=== PATIENT | male | born 1950 | race Two or more races ===

== ENCOUNTER 2017-11-07 06:21 | Inpatient (IN) | payer MEDICARE ==
[~2017-11-07] VITALS: Ht 162.6 cm; Wt 83.0 kg
[2017-11-07 06:55] LABS: BASOPHILS 0.1 % (0-2); EOSINOPHILS 0.1 % (0-7); HEMATOCRIT 43.9 % (42.0-54.0); HEMOGLOBIN 14.2 g/dL (13.5-17.5); IMMATURE GRANULOCYTES 0.2 % (0-5); LYMPHOCYTES 5.9 % (15-50); MCH 24.8 pg (26.0-34.0); MCHC 32.3 g/dL (31.0-37.0); MCV 76.6 fL (80.0-100.0); MEAN PLATELET VOLUME 9.5 fL (7.4-10.4); MONOCYTES 3.7 % (2-11); PLATELET COUNT 261 10x3/uL (130-400); RBC 5.73 10x6/uL (4.20-6.10); RDW 14.7 % (11.5-14.5); WBC 14.2 10x3/uL (4.8-10.8)
[2017-11-07 07:12] LABS: ALKALINE PHOSPHATASE 68 U/L (46-116); ALT (SGPT) 24 U/L (10-68); AMYLASE - SERUM 51 U/L (25-115); CALC OSMOLALITY 278 mosm/kg (275-300); CALCIUM 9.9 mg/dL (8.5-10.1); CARBON DIOXIDE 26.9 mmol/L (21.0-32.0); CHLORIDE - SERUM 101 mmol/L (98-107); CREATININE - SERUM 0.9 mg/dL (0.6-1.3); GLUCOSE 163 mg/dL (74-106); LIPASE 140 U/L (73-393); POTASSIUM - SERUM 4.4 mmol/L (3.5-5.1); PROTEIN - SERUM 7.9 g/dL (6.4-8.2); SODIUM 138 mmol/L (136-145); UREA NITROGEN 10 mg/dL (7-18); eGFR NON AFRICAN AMERICAN 89 mL/min (90-120)
[2017-11-07 09:26] LABS: APPEARANCE HAZY (CLEAR); BILIRUBIN NEGATIVE (NEGATIVE); COLOR DK YELLOW (YELLOW); GLUCOSE NEGATIVE (NEGATIVE); KETONE MODERATE mg/dL (NEGATIVE); NITRITE NEGATIVE (NEGATIVE); PROTEIN NEGATIVE (NEGATIVE); UROBILINOGEN NORMAL (NORMAL)
[2017-11-07 21:36] VITALS: BP 117/63
[2017-11-08 02:57] VITALS: Ht 162.6 cm; Wt 83.0 kg
[2017-11-08] MEDS ORDERED: ASPIRIN325 MG PO (04:50)
[2017-11-08 04:54] VITALS: BP 103/60
[2017-11-08 06:07] LABS: BASOPHILS 0.6 % (0-2); EOSINOPHILS 2.4 % (0-7); HEMATOCRIT 36.9 % (42.0-54.0); HEMOGLOBIN 11.4 g/dL (13.5-17.5); IMMATURE GRANULOCYTES 0.2 % (0-5); LYMPHOCYTES 19.3 % (15-50); MCH 23.9 pg (26.0-34.0); MCHC 30.9 g/dL (31.0-37.0); MCV 77.4 fL (80.0-100.0); MEAN PLATELET VOLUME 9.6 fL (7.4-10.4); MONOCYTES 11.4 % (2-11); NEUTROPHILS 66.1 % (40-80); PLATELET COUNT 227 10x3/uL (130-400); RBC 4.77 10x6/uL (4.20-6.10); RDW 14.8 % (11.5-14.5)
[2017-11-08 06:19] LABS: WBC 6.3 10x3/uL (4.8-10.8)
[2017-11-08 06:49] LABS: CALC OSMOLALITY 280 mosm/kg (275-300); CALCIUM 8.1 mg/dL (8.5-10.1); CARBON DIOXIDE 26.1 mmol/L (21.0-32.0); CHLORIDE - SERUM 107 mmol/L (98-107); CREATININE - SERUM 0.9 mg/dL (0.6-1.3); GLUCOSE 95 mg/dL (74-106); POTASSIUM - SERUM 3.9 mmol/L (3.5-5.1); SODIUM 141 mmol/L (136-145); UREA NITROGEN 12 mg/dL (7-18); eGFR NON AFRICAN AMERICAN 89 mL/min (90-120)
[2017-11-08 08:14] VITALS: BP 101/56
[2017-11-08 12:39] VITALS: BP 106/66
[2017-11-08] MEDS ORDERED: MIRALAX17 GM PO (13:26)
== END 2017-11-08 14:37 | disposition home or self-care (01) | DRG 390 ==
LOC: D.ER 06:21 → D.MS 11:02 → D.EDHOLD 11:02 → D.MS 18:20
PROVIDERS: Family Medicine; Surgery
PROC: 0D9670Z Drainage of Stomach with Drainage Device, Via Natural or Artificial Opening (ICD-10-PCS; principal; 2017-11-07)
DX: K56.609 Unspecified intestinal obstruction, unspecified as to partial versus complete obstruction (principal)

== ENCOUNTER 2018-01-07 23:26 | Inpatient (IN) | payer MEDICARE ==
[~2018-01-07] VITALS: Ht 162.6 cm; Wt 83.6 kg
--- NOTE | ~2018-01-07 | OP ---
PATIENT NAME: BEBETO VALENTINE MEDICAL RECORD: [id number] :48 LOCATION:D.MS [address] ADMISSION DATE:01/08/18 SURGEON: RISA PADILLA MD DATE OF OPERATION: 01/11/2018 SURGEON: Risa Padilla MD (JJ) PREOPERATIVE DIAGNOSIS: Small bowel obstruction. POSTOPERATIVE DIAGNOSIS: Small bowel obstruction. PROCEDURES PERFORMED: 1. Diagnostic laparoscopy. 2. Laparoscopic lysis of adhesions. ANESTHESIA: General. COMPLICATIONS: None. SPECIMENS: None. Case was clean. ESTIMATED BLOOD LOSS: 30 cc. OPERATIVE COURSE: After consent was obtained, the patient was taken to the operating room and placed in the supine position on the operating table. Next, general anesthesia was given via endotracheal intubation after time-out was performed to confirm correct patient and procedure. The abdomen was prepped and draped in typical sterile fashion. Local anesthetic was injected in the left upper quadrant at Su's point. A stab incision was made with #11 blade scalpel. Using a 5-mm bladeless optical trocar, the abdomen was entered in direct laparoscopic vision. Adequate pneumoperitoneum was achieved. The abdominal cavity was inspected. No evidence of bowel injury. No evidence of bleeding. Two additional 5-mm trocars were placed under direct laparoscopic vision in left lower quadrant and left lateral quadrant. The cecum was identified. The terminal ileum was identified. The small bowel was run from the terminal ileum to the ligament of Treitz. There was a dense adhesion in the distal terminal ileum, creating a taut 90-degree fold in the bowel. Laparoscopic lysis of adhesion was performed with Metzenbaum scissors until the adhesion was completely excised and resolved. At that time, the small bowel again was run from the terminal ileum to the ligament of Treitz. There were no additional adhesions identified within either loops of small bowel. The abdominal cavity was copiously irrigated and suctioned. The abdominal cavity was inspected. There was no evidence of bowel injury and no evidence of bleeding. At this time, all remaining instruments were removed. The abdomen was desufflated. Trocars were removed. Skin was closed with 4-0 Monocryl, Mastisol, and Steri-Strips. At the end of the case, all needle and instrument counts were correct. No complications occurred. The patient was extubated and transferred to PACU in stable condition. TRANSINT:[id number] Voice Confirmation ID: [id number] DOCUMENT ID: [id number] OPERATIVE REPORT [id number] BEBETO VALENTINE JAMES J MD at 1943 CC: [id number] DICTATION DATE: 01/11/18 1800 MOLECULAR PATHOLOGIST: 01/11/18 1822 ADM IN [facility] [address] [place] [address]
[~2018-01-07 23:26] MED LIST: ASPIRIN325 MG PO; MIRALAX17 GM PO
[2018-01-07] MEDS ORDERED: CRESTOR5 MG PO (23:31)
[2018-01-08] VITALS (9 sets, daily range): BP systolic 103–140; BP diastolic 56–83; BMI 31.8
[2018-01-08 00:39] LABS: HEMATOCRIT 44.8 % (42.0-54.0); HEMOGLOBIN 14.3 g/dL (13.5-17.5); LYMPHOCYTES 9.9 % (15-50); MCH 24.4 pg (26.0-34.0); MCHC 31.9 g/dL (31.0-37.0); MCV 76.6 fL (80.0-100.0); MEAN PLATELET VOLUME 9.4 fL (7.4-10.4); NEUTROPHILS 85.3 % (40-80); PLATELET COUNT 228 10x3/uL (130-400); RBC 5.85 10x6/uL (4.20-6.10); RDW 15.8 % (11.5-14.5); WBC 9.2 10x3/uL (4.8-10.8)
[2018-01-08 00:54] LABS: ALBUMIN 3.4 g/dL (3.4-5.0); ALKALINE PHOSPHATASE 57 U/L (46-116); ALT (SGPT) 17 U/L (10-68); BILIRUBIN - TOTAL 1.11 mg/dL (0.2-1.3); CALC OSMOLALITY 282 mosm/kg (275-300); CARBON DIOXIDE 27.6 mmol/L (21.0-32.0); CHLORIDE - SERUM 106 mmol/L (98-107); CREATININE - SERUM 0.8 mg/dL (0.6-1.3); LIPASE 151 U/L (73-393); PROTEIN - SERUM 6.9 g/dL (6.4-8.2); SODIUM 141 mmol/L (136-145); UREA NITROGEN 11 mg/dL (7-18); eGFR NON AFRICAN AMERICAN > 90 mL/min (90-120)
[2018-01-08 00:55] LABS: GLUCOSE 153 mg/dL (74-106)
[2018-01-08 14:12] LABS: APPEARANCE CLEAR (CLEAR); BILIRUBIN NEGATIVE (NEGATIVE); COLOR YELLOW (YELLOW); GLUCOSE NEGATIVE (NEGATIVE); KETONE NEGATIVE (NEGATIVE); NITRITE NEGATIVE (NEGATIVE); PROTEIN NEGATIVE (NEGATIVE); UROBILINOGEN NORMAL (NORMAL)
[2018-01-09 00:56] VITALS: BP 129/78
[2018-01-09 04:38] LABS: BASOPHILS 0.3 % (0-2); HEMATOCRIT 39.8 % (42.0-54.0); HEMOGLOBIN 12.5 g/dL (13.5-17.5); IMMATURE GRANULOCYTES 0.3 % (0-5); LYMPHOCYTES 18.9 % (15-50); MCH 24.6 pg (26.0-34.0); MCHC 31.4 g/dL (31.0-37.0); MCV 78.2 fL (80.0-100.0); MEAN PLATELET VOLUME 9.7 fL (7.4-10.4); MONOCYTES 11.2 % (2-11); NEUTROPHILS 66.3 % (40-80); PLATELET COUNT 190 10x3/uL (130-400); RBC 5.09 10x6/uL (4.20-6.10); RDW 15.9 % (11.5-14.5)
[2018-01-09 04:40] LABS: WBC 6.1 10x3/uL (4.8-10.8)
[2018-01-09 04:45] LABS: CALC OSMOLALITY 286 mosm/kg (275-300); CALCIUM 7.5 mg/dL (8.5-10.1); CARBON DIOXIDE 30.4 mmol/L (21.0-32.0); CHLORIDE - SERUM 108 mmol/L (98-107); GLUCOSE 109 mg/dL (74-106); POTASSIUM - SERUM 3.6 mmol/L (3.5-5.1); SODIUM 144 mmol/L (136-145); UREA NITROGEN 11 mg/dL (7-18); eGFR NON AFRICAN AMERICAN 79 mL/min (90-120)
[2018-01-09 04:48] VITALS: BP 131/73
[2018-01-09 08:57] VITALS: BP 128/73
[2018-01-09 10:06] VITALS: Ht 162.6 cm; Wt 83.6 kg
[2018-01-09 12:49] VITALS: BP 139/76
[2018-01-09 16:52] VITALS: BP 139/80
[2018-01-09 20:00] VITALS: BP 130/77
[2018-01-10] VITALS (7 sets, daily range): BP systolic 128–145; BP diastolic 68–85
[2018-01-10 05:19] LABS: BASOPHILS 0.5 % (0-2); EOSINOPHILS 4.7 % (0-7); HEMATOCRIT 40.8 % (42.0-54.0); HEMOGLOBIN 13.2 g/dL (13.5-17.5); IMMATURE GRANULOCYTES 0.2 % (0-5); LYMPHOCYTES 15.7 % (15-50); MCH 25.1 pg (26.0-34.0); MCHC 32.4 g/dL (31.0-37.0); MCV 77.6 fL (80.0-100.0); MEAN PLATELET VOLUME 10.1 fL (7.4-10.4); MONOCYTES 11.5 % (2-11); NEUTROPHILS 67.4 % (40-80); PLATELET COUNT 192 10x3/uL (130-400); RBC 5.26 10x6/uL (4.20-6.10); RDW 15.4 % (11.5-14.5); WBC 6.4 10x3/uL (4.8-10.8)
[2018-01-10 05:28] LABS: ALKALINE PHOSPHATASE 52 U/L (46-116); ALT (SGPT) 19 U/L (10-68); BILIRUBIN - TOTAL 2.01 mg/dL (0.2-1.3); CALC OSMOLALITY 278 mosm/kg (275-300); CALCIUM 8.4 mg/dL (8.5-10.1); CARBON DIOXIDE 28.6 mmol/L (21.0-32.0); CHLORIDE - SERUM 106 mmol/L (98-107); CREATININE - SERUM 0.8 mg/dL (0.6-1.3); GLUCOSE 99 mg/dL (74-106); POTASSIUM - SERUM 3.4 mmol/L (3.5-5.1); SODIUM 141 mmol/L (136-145); eGFR NON AFRICAN AMERICAN > 90 mL/min (90-120)
[2018-01-10 05:33] LABS: UREA NITROGEN 6 mg/dL (7-18)
[2018-01-11 04:05] VITALS: BP 114/63
[2018-01-11 06:08] LABS: BASOPHILS 0.5 % (0-2); EOSINOPHILS 4.1 % (0-7); HEMATOCRIT 42.6 % (42.0-54.0); HEMOGLOBIN 13.9 g/dL (13.5-17.5); MCH 24.9 pg (26.0-34.0); MCHC 32.6 g/dL (31.0-37.0); MCV 76.3 fL (80.0-100.0); MEAN PLATELET VOLUME 10.2 fL (7.4-10.4); MONOCYTES 9.1 % (2-11); NEUTROPHILS 74.3 % (40-80); PLATELET COUNT 210 10x3/uL (130-400); RBC 5.58 10x6/uL (4.20-6.10); RDW 15.2 % (11.5-14.5); WBC 6.4 10x3/uL (4.8-10.8)
[2018-01-11 06:28] LABS: ALBUMIN 3.1 g/dL (3.4-5.0); ALKALINE PHOSPHATASE 56 U/L (46-116); ALT (SGPT) 21 U/L (10-68); BILIRUBIN - TOTAL 1.93 mg/dL (0.2-1.3); CALC OSMOLALITY 276 mosm/kg (275-300); CALCIUM 8.5 mg/dL (8.5-10.1); CARBON DIOXIDE 25.4 mmol/L (21.0-32.0); CHLORIDE - SERUM 105 mmol/L (98-107); CREATININE - SERUM 0.9 mg/dL (0.6-1.3); GLUCOSE 89 mg/dL (74-106); PROTEIN - SERUM 6.6 g/dL (6.4-8.2); SODIUM 141 mmol/L (136-145); UREA NITROGEN 5 mg/dL (7-18); eGFR NON AFRICAN AMERICAN 89 mL/min (90-120)
[2018-01-11 06:29] LABS: POTASSIUM - SERUM 3.1 mmol/L (3.5-5.1)
[2018-01-11 08:42] VITALS: BP 126/84
[2018-01-11 13:00] VITALS: BP 145/79
[2018-01-11 19:07] VITALS: BP 131/80
[2018-01-11 20:51] VITALS: BP 131/80
[2018-01-12 04:26] VITALS: BP 98/49
[2018-01-12 05:05] LABS: BASOPHILS 0.5 % (0-2); EOSINOPHILS 5.4 % (0-7); HEMATOCRIT 38.6 % (42.0-54.0); HEMOGLOBIN 12.5 g/dL (13.5-17.5); IMMATURE GRANULOCYTES 0.2 % (0-5); LYMPHOCYTES 14.5 % (15-50); MCHC 32.4 g/dL (31.0-37.0); MEAN PLATELET VOLUME 9.6 fL (7.4-10.4); MONOCYTES 9.1 % (2-11); NEUTROPHILS 70.3 % (40-80); PLATELET COUNT 203 10x3/uL (130-400); RBC 5.01 10x6/uL (4.20-6.10); RDW 15.3 % (11.5-14.5); WBC 6.3 10x3/uL (4.8-10.8)
[2018-01-12 05:28] LABS: ALBUMIN 2.5 g/dL (3.4-5.0); ALKALINE PHOSPHATASE 51 U/L (46-116); ALT (SGPT) 19 U/L (10-68); BILIRUBIN - TOTAL 1.32 mg/dL (0.2-1.3); CALC OSMOLALITY 279 mosm/kg (275-300); CALCIUM 7.6 mg/dL (8.5-10.1); CARBON DIOXIDE 29.7 mmol/L (21.0-32.0); CHLORIDE - SERUM 107 mmol/L (98-107); CREATININE - SERUM 0.9 mg/dL (0.6-1.3); GLUCOSE 110 mg/dL (74-106); POTASSIUM - SERUM 3.4 mmol/L (3.5-5.1); PROTEIN - SERUM 5.5 g/dL (6.4-8.2); SODIUM 141 mmol/L (136-145); UREA NITROGEN 6 mg/dL (7-18); eGFR NON AFRICAN AMERICAN 89 mL/min (90-120)
[2018-01-12] MEDS ORDERED: HYDROCODON-ACE1 EAC7 PO (08:26)
[2018-01-12 08:39] VITALS: BP 116/76
== END 2018-01-12 13:15 | disposition home or self-care (01) | DRG 337 ==
LOC: D.ER 23:26 → D.MS 01-08 03:48 → D.EDHOLD 01-08 03:48 → D.MS 01-08 05:29
PROVIDERS: Family Medicine; Surgery
PROC: 0D9670Z Drainage of Stomach with Drainage Device, Via Natural or Artificial Opening (ICD-10-PCS; 2018-01-08)
PROC: 0DNB4ZZ Release Ileum, Percutaneous Endoscopic Approach (ICD-10-PCS; principal; 2018-01-11 11:15)
DX: K56.50 Intestinal adhesions [bands], unspecified as to partial versus complete obstruction (principal); E78.5 Hyperlipidemia, unspecified; I73.9 Peripheral vascular disease, unspecified; Z95.820 Peripheral vascular angioplasty status with implants and grafts; K21.9 Gastro-esophageal reflux disease without esophagitis; E87.6 Hypokalemia; N20.0 Calculus of kidney

== ENCOUNTER → 2019-01-09 09:05 | Outpatient (CLI) | payer MEDICARE ==
[2018-01-09 10:06] VITALS: BMI 31.7
[~2019-01-09 09:05] MED LIST changes: +CRESTOR5 MG PO; +HYDROCODON-ACE1 EAC7 PO
== END | disposition home or self-care (01) ==
LOC: D.RAD 09:05
PROVIDERS: ATTEND Internal Medicine Gastroenterology
DX: R10.9 Unspecified abdominal pain (principal); R93.3 Abnormal findings on diagnostic imaging of other parts of digestive tract

== ENCOUNTER 2019-09-17 07:11 | Inpatient (IN) | payer MEDICARE ==
[~2019-09-17] VITALS: Ht 162.6 cm; Wt 88.5 kg
[2019-09-17 07:52] VITALS: BP 133/77
[2019-09-17 08:11] LABS: CALC OSMOLALITY 275 mosm/kg (275-300); CALCIUM 8.7 mg/dL (8.5-10.1); CARBON DIOXIDE 28.4 mmol/L (21.0-32.0); CHLORIDE - SERUM 103 mmol/L (98-107); CREATININE - SERUM 0.9 mg/dL (0.6-1.3); GLUCOSE 155 mg/dL (74-106); POTASSIUM - SERUM 4.4 mmol/L (3.5-5.1); SODIUM 137 mmol/L (136-145); UREA NITROGEN 11 mg/dL (7-18); eGFR NON AFRICAN AMERICAN 89 mL/min (90-120)
[2019-09-17 08:19] LABS: ALBUMIN 3.4 g/dL (3.4-5.0); ALKALINE PHOSPHATASE 43 U/L (30-120); ALT (SGPT) 23 U/L (10-68); AMYLASE - SERUM 46 U/L (25-115); BILIRUBIN - TOTAL 1.69 mg/dL (0.2-1.3); LIPASE 109 U/L (73-393); PROTEIN - SERUM 6.5 g/dL (6.4-8.2)
[2019-09-17 08:20] LABS: BASOPHILS 0.2 % (0-2); EOSINOPHILS 0.1 % (0-7); HEMATOCRIT 40.3 % (42.0-54.0); IMMATURE GRANULOCYTES 0.2 % (0-5); LYMPHOCYTES 7.3 % (15-50); MCH 26.1 pg (26.0-34.0); MCHC 32.3 g/dL (31.0-37.0); MCV 80.8 fL (80.0-100.0); MEAN PLATELET VOLUME 9.5 fL (7.4-10.4); MONOCYTES 4.5 % (2-11); NEUTROPHILS 87.7 % (40-80); PLATELET COUNT 222 10x3/uL (130-400); RBC 4.99 10x6/uL (4.20-6.10); RDW 14.1 % (11.5-14.5); TROPONIN-I < 0.017 ng/mL (0.000-0.060); WBC 9.6 10x3/uL (4.8-10.8)
[2019-09-17 08:52] VITALS: BP 147/76
[2019-09-17 09:20] LABS: BILIRUBIN NEGATIVE (NEGATIVE); GLUCOSE NEGATIVE (NEGATIVE); KETONE SMALL mg/dL (NEGATIVE); NITRITE NEGATIVE (NEGATIVE); SPECIFIC GRAVITY 1.005 (1.005-1.020); UROBILINOGEN NORMAL (NORMAL)
--- NOTE | 2019-09-17 10:07 | NUR ---
REPORTTO DOMENIC SANTA
--- NOTE | 2019-09-17 10:29 | NUR ---
RECEIVED PATIENT FROM ER VIA STRETCHER. ALERT AND ORIENTED. NO C/O PAIN. NO S/S OF ACUTE DISTRESS NOTED. NG TUBE TO RIGHT NARE, L/I/S. IV TO RIGHT HAND, NS INFUSING @ 125ML/HR. SITE PATENT WITHOUT REDNESS OR SWELLING. VITALS STABLE. DENIES ANY NEEDS AT THIS TIME. CALL LIGHT IN REACH. WILL CONTINUE TO MONITOR.
[2019-09-17 11:27] VITALS: BP 146/74; BMI 33.5
[2019-09-17 16:39] VITALS: BP 128/74
--- NOTE | 2019-09-17 18:17 | NUR ---
ALERT AND ORIENTED. NO C/O PAIN. NO S/S OF ACUTE DISTRESS NOTED. DENIES ANY NEEDS AT THIS TIME. CALL LIGHT IN REACH. WILL CONTINUE TO MONITOR.
[2019-09-17 20:00] VITALS: BP 145/70
[2019-09-18] VITALS: BP 118/68
[2019-09-18 04:00] VITALS: BP 133/73
[2019-09-18 06:04] LABS: BASOPHILS 0.2 % (0-2); EOSINOPHILS 2.2 % (0-7); HEMATOCRIT 38.1 % (42.0-54.0); HEMOGLOBIN 11.8 g/dL (13.5-17.5); IMMATURE GRANULOCYTES 0.2 % (0-5); LYMPHOCYTES 9.1 % (15-50); MCH 25.8 pg (26.0-34.0); MEAN PLATELET VOLUME 9.6 fL (7.4-10.4); MONOCYTES 12.7 % (2-11); NEUTROPHILS 75.6 % (40-80); PLATELET COUNT 210 10x3/uL (130-400); RBC 4.58 10x6/uL (4.20-6.10); RDW 14.1 % (11.5-14.5)
[2019-09-18 06:14] LABS: MCV 83.2 fL (80.0-100.0); WBC 6.2 10x3/uL (4.8-10.8)
[2019-09-18 06:38] LABS: ALBUMIN 2.7 g/dL (3.4-5.0); ALKALINE PHOSPHATASE 42 U/L (30-120); ALT (SGPT) 21 U/L (10-68); BILIRUBIN - TOTAL 2.34 mg/dL (0.2-1.3); CALCIUM 7.4 mg/dL (8.5-10.1); CARBON DIOXIDE 26.4 mmol/L (21.0-32.0); CHLORIDE - SERUM 107 mmol/L (98-107); CREATININE - SERUM 0.9 mg/dL (0.6-1.3); POTASSIUM - SERUM 3.9 mmol/L (3.5-5.1); PROTEIN - SERUM 5.2 g/dL (6.4-8.2); SODIUM 140 mmol/L (136-145); eGFR NON AFRICAN AMERICAN 89 mL/min (90-120)
[2019-09-18 06:52] LABS: CALC OSMOLALITY 279 mosm/kg (275-300); GLUCOSE 98 mg/dL (74-106); UREA NITROGEN 15 mg/dL (7-18)
[2019-09-18 08:10] VITALS: BP 110/65
--- NOTE | 2019-09-18 08:18 | NUR ---
PT RESTING IN BED. RESP EVEN AND UNLABORED. NG TUBE TO RIGHT NARE WITH BROWNISH COLORED DRAINAGE NOTED. PT REPORTS PAIN 9/10 AT THIS TIME. STAFF TO ADDRESS PAIN MEDICATION ORDERS WITH . IV TO RIGHT HAND WITH NS @ 125ML/HR INFUSING VIA PUMP. SITE WITHOUT REDNESS OR EDEMA. DENIES FURTHER NEEDS AT THIS TIME. CL WITHIN REACH. ENCOURAGED TO CALL WITH NEEDS. CONTINUE POC
[2019-09-18 12:24] VITALS: BP 147/80
[2019-09-18 13:59] VITALS: Ht 162.6 cm; Wt 88.5 kg
[2019-09-18 15:51] VITALS: BP 149/78
[2019-09-18 20:00] VITALS: BP 145/79
[2019-09-19] VITALS: BP 127/67
[2019-09-19 04:00] VITALS: BP 141/76
[2019-09-19 05:19] LABS: BASOPHILS 0.3 % (0-2); EOSINOPHILS 2.3 % (0-7); HEMATOCRIT 36.4 % (42.0-54.0); HEMOGLOBIN 11.4 g/dL (13.5-17.5); IMMATURE GRANULOCYTES 0.2 % (0-5); LYMPHOCYTES 15.3 % (15-50); MCH 25.9 pg (26.0-34.0); MCHC 31.3 g/dL (31.0-37.0); MCV 82.5 fL (80.0-100.0); MEAN PLATELET VOLUME 9.2 fL (7.4-10.4); MONOCYTES 12.5 % (2-11); NEUTROPHILS 69.4 % (40-80); PLATELET COUNT 192 10x3/uL (130-400); RBC 4.41 10x6/uL (4.20-6.10); WBC 5.7 10x3/uL (4.8-10.8)
[2019-09-19 05:37] LABS: ALBUMIN 2.6 g/dL (3.4-5.0); ALKALINE PHOSPHATASE 37 U/L (30-120); ALT (SGPT) 25 U/L (10-68); BILIRUBIN - TOTAL 1.81 mg/dL (0.2-1.3); CALC OSMOLALITY 280 mosm/kg (275-300); CALCIUM 7.6 mg/dL (8.5-10.1); CARBON DIOXIDE 25.3 mmol/L (21.0-32.0); CHLORIDE - SERUM 108 mmol/L (98-107); CREATININE - SERUM 0.9 mg/dL (0.6-1.3); GLUCOSE 81 mg/dL (74-106); POTASSIUM - SERUM 3.6 mmol/L (3.5-5.1); PROTEIN - SERUM 5.5 g/dL (6.4-8.2); SODIUM 141 mmol/L (136-145); UREA NITROGEN 15 mg/dL (7-18); eGFR NON AFRICAN AMERICAN 89 mL/min (90-120)
--- NOTE | 2019-09-19 06:23 | NUR ---
PATIENT UP TO BATROOM NG TUB CAME OUT. CALL TO DENTAL PATIENT COORDINATOR AWATTING CALL BACK.
--- NOTE | 2019-09-19 06:50 | NUR ---
ANDERSON RETRUNED CALL INFORMED TO PAGE DR PADILLA. DR PADILLA PAGED AWATTING CALL BACK
--- NOTE | 2019-09-19 07:23 | NUR ---
PT IS RESTING IN BED WITH EYES OPEN. RESPIRATIONS ARE EVEN AND UNLABORED. PT IS AAO X 4. NO NG TUBE NOTED. BS HYPOACTIVE X 4. ABDOMEN IS DISTENDED AND FIRM. PT REPORTS ABDOMINAL PAIN. FLAVOR TANK TENDER MORPHINE AVAILABLE NEEDED. PT DENIES NEEDS. PT DENIES PRESENCE OF N/V/ AT THIS TIME. PT STATES THAT HE HAS PASSED GAS BUT HAS NOT HAD BM OF YET. BED IS IN THE LOWEST POSITION. CALL LIGHT AND BEDSIDE TABLE ARE WITHIN REACH. SIDE RAILS X 2. PT DENIES FURTHER NEEDS. WILL CONT TO MONITOR.
--- NOTE | 2019-09-19 08:45 | NUR ---
PT AMBULATING HALLWAY WITHOUT DIFFICULTY. PT REPORTS ABDOMINAL PAIN DESCRIBED SHARP AND CRAMPING. SEED TESTER MORPHINE AVAILABLE. PT DENIES NEEDS. PT DENIES BM THUS FAR REPORTS THAT HE HAS PASSED GAS.
[2019-09-19 08:54] VITALS: BP 149/79
--- NOTE | 2019-09-19 09:46 | NUR ---
ATTEMPT MADE TO PLACE NG TUBE. PT NOT TOLERATING ATTEMPTS. BLOOD NOTED TO NG TUBE UPON REMOVAL FROM PT NOSTRIL. PT STANDING AT SINK VOMITING SCANT AMOUNTS OF YELLOW/GREEN FLUID.
[2019-09-19 12:32] VITALS: BP 134/64
--- NOTE | 2019-09-19 15:50 | NUR ---
PT WITH SMALL FORMED BM THAT IS DARK BROWN IN COLORS.
[2019-09-19 16:44] VITALS: BP 142/81
[2019-09-19 20:43] VITALS: BP 148/79
[2019-09-20 00:20] VITALS: BP 137/76
[2019-09-20 05:50] LABS: BASOPHILS 0.3 % (0-2); EOSINOPHILS 3.8 % (0-7); HEMATOCRIT 35.7 % (42.0-54.0); HEMOGLOBIN 11.3 g/dL (13.5-17.5); IMMATURE GRANULOCYTES 0.2 % (0-5); MCH 25.9 pg (26.0-34.0); MCHC 31.7 g/dL (31.0-37.0); MCV 81.9 fL (80.0-100.0); MEAN PLATELET VOLUME 9.4 fL (7.4-10.4); MONOCYTES 14.1 % (2-11); NEUTROPHILS 69.6 % (40-80); PLATELET COUNT 187 10x3/uL (130-400); RBC 4.36 10x6/uL (4.20-6.10); WBC 5.7 10x3/uL (4.8-10.8)
[2019-09-20 06:17] VITALS: BP 132/69
[2019-09-20 06:27] LABS: ALBUMIN 2.6 g/dL (3.4-5.0); ALKALINE PHOSPHATASE 40 U/L (30-120); ALT (SGPT) 29 U/L (10-68); BILIRUBIN - TOTAL 1.68 mg/dL (0.2-1.3); CALC OSMOLALITY 280 mosm/kg (275-300); CALCIUM 7.6 mg/dL (8.5-10.1); CARBON DIOXIDE 23.8 mmol/L (21.0-32.0); CHLORIDE - SERUM 107 mmol/L (98-107); CREATININE - SERUM 0.8 mg/dL (0.6-1.3); POTASSIUM - SERUM 3.4 mmol/L (3.5-5.1); PROTEIN - SERUM 5.1 g/dL (6.4-8.2); SODIUM 142 mmol/L (136-145); UREA NITROGEN 13 mg/dL (7-18); eGFR NON AFRICAN AMERICAN > 90 mL/min (90-120)
[2019-09-20 06:29] LABS: GLUCOSE 64 mg/dL (74-106)
[2019-09-20 08:58] VITALS: BP 135/70
--- NOTE | 2019-09-20 09:44 | NUR ---
IV UNHOOKED TO GO FOR AN X RAY.
--- NOTE | 2019-09-20 10:10 | NUR ---
NEW IV STARTED 22 G LEFT WRIST.
--- NOTE | 2019-09-20 11:25 | NUR ---
Nutrition follow-up: NPO 2/2 bowel obstruction Small bowel follow through today +BM, small NGT; unable to replace 2/2 pt unable to tolerate Wt: 194# Recommend starting ProcalAmine PPN @ 75 ml/hr RDN following.
[2019-09-20 12:26] VITALS: BP 149/60
[2019-09-20 17:15] VITALS: BP 146/68
--- NOTE | 2019-09-20 18:38 | NUR ---
NG REMOVED, NO RESIDUAL AFTER 4 HOURS. HAD A CLEAR LIQUID DIET, TOLERATED IT. HE REFUSED THE 4 TH POTASSIUM RIDER. HAD A TOTAL OF 30 MEQ TODAY. HE HAS WALKED THE HALLS.
[2019-09-20 20:00] VITALS: BP 144/72
[2019-09-21] VITALS: BP 140/65
[2019-09-21 04:00] VITALS: BP 137/71
[2019-09-21 06:37] LABS: ALBUMIN 3.1 g/dL (3.4-5.0); ALKALINE PHOSPHATASE 51 U/L (30-120); ALT (SGPT) 27 U/L (10-68); BILIRUBIN - TOTAL 2.06 mg/dL (0.2-1.3); CALC OSMOLALITY 276 mosm/kg (275-300); CALCIUM 8.1 mg/dL (8.5-10.1); CARBON DIOXIDE 24.7 mmol/L (21.0-32.0); CHLORIDE - SERUM 104 mmol/L (98-107); CREATININE - SERUM 0.9 mg/dL (0.6-1.3); GLUCOSE 89 mg/dL (74-106); POTASSIUM - SERUM 3.2 mmol/L (3.5-5.1); SODIUM 140 mmol/L (136-145); UREA NITROGEN 10 mg/dL (7-18); eGFR NON AFRICAN AMERICAN 89 mL/min (90-120)
[2019-09-21 06:41] LABS: PROTEIN - SERUM 6.5 g/dL (6.4-8.2)
[2019-09-21 07:03] LABS: BASOPHILS 0.5 % (0-2); EOSINOPHILS 4.6 % (0-7); HEMATOCRIT 33.4 % (42.0-54.0); HEMOGLOBIN 10.9 g/dL (13.5-17.5); IMMATURE GRANULOCYTES 0.2 % (0-5); LYMPHOCYTES 14.5 % (15-50); MCH 26.1 pg (26.0-34.0); MCHC 32.6 g/dL (31.0-37.0); MEAN PLATELET VOLUME 9.3 fL (7.4-10.4); MONOCYTES 12.2 % (2-11); PLATELET COUNT 202 10x3/uL (130-400); RBC 4.18 10x6/uL (4.20-6.10); RDW 14.1 % (11.5-14.5); WBC 4.3 10x3/uL (4.8-10.8)
[2019-09-21 07:16] LABS: MCV 79.9 fL (80.0-100.0)
--- NOTE | 2019-09-21 07:33 | NUR ---
ALERT AND ORIENTED. LUNGS CLEAR BILATERALLY. HEART SOUNDS S1 AND S2 HEARD IN ALL FORD. BOWEL SOUNDS ACTIVE X 4. SKIN INTACT WITHOUT REDNESS. IV TO LEFT WRIST PATENT WITHOUT REDNESS. DENIES NEEDS. BED LOW. SITTER OUTSIDE ROOM. WILL CONTINUE TO MONITOR.
--- NOTE | 2019-09-21 07:34 | NUR ---
ALERT AND ORIENTED. LUNGS CLEAR BILATERALLY. HEART SOUNDS S1 AND S2 HEARD IN ALL FORD. BOWEL SOUNDS ACTIVE X 4. SKIN INTACT WITHOUT REDNESS. DENIES PAIN. DENIES NEEDS. BED LOW. CALL BLANCHARD AND PERSONAL ITEMS IN REACH. WILL CONTINUE TO MONITOR.
[2019-09-21 09:39] VITALS: BP 139/67
[2019-09-21 09:52] LABS: BILIRUBIN - DIRECT 0.3 mg/dL (0.00-0.30); MAGNESIUM - SERUM 1.8 mg/dL (1.8-2.4)
--- NOTE | 2019-09-21 12:09 | NUR ---
SPOKE WITH ANDERSON ANGUIANO WHO STATES OK WITH HER TO DC LONG OK WITH RANDY. STATES WILL MAKE NOTE.
[2019-09-21] MEDS ORDERED: MILK OF MAGNESI30 ML PO (12:10)
[2019-09-21 12:17] VITALS: BP 126/64
--- NOTE | 2019-09-21 13:05 | NUR ---
IV REMOVED FROM LEFT WRIST FOR DC. WAITING DC PAPERWORK.
--- NOTE | 2019-09-21 13:45 | NUR ---
DISCHARGE EDUCATION PROVIDED BOTH WRITTEN AND VERBAL. VERBALIZED UNDERSTANDING. DENIES FURTHER QUESTIONS. REQUESTS TO WALK DOWN. PATIENT DC HOME WITH ALL BELONGINGS.
--- NOTE | 2019-09-22 13:14 | MORECARE ---
CASE MANAGEMENT DISCHARGE SUMMARY PATIENT: BEBETO VALENTINE UNIT: [id number] ADM DATE: 09/17/19 AGE: 69 : 48 SEX: M ROOM/BED: D.2207 AUTHOR: CARINADOC PHYSICIAN: REFERRING PHYSICIAN: LEONA KENNY MD DATE OF SERVICE: 09/22/19 Discharge Plan Patient Name: BEBETO VALENTINE Facility: [facility]:[place] : 1950 Planned Disposition: Home Anticipated Discharge Date: Discharge Date: 09/21/2019 Expected LOS: Initial Reviewer: [email or web address] Initial Review Date: 09/21/2019 Generated: 09/22/19 2:13 pm Comments DCP- Discharge Planning Updated by [email or web address]: Zoey Urena on 09/21/19 1:[address] DC PLAN: RETURN HOME WITH FAMILY INDEPENENTLY. ANTICIPATED DC NEEDS: DENIED DC NEEDS. CM met with patient to complete initial dc planning assessment. CM educated patient on the CM role and verbal consent given by patient to complete assessment. CM verified patient's address, phone number, and emergency contact phone numbers. Patient lives at home with his son and dtr in law. At discharge patient plans to return home and feels this is a safe discharge. CM discussed availability of home health, rehab services, and medical equipment. Patient denied known discharge needs at this time. Transportation provider at discharge will be his dtr in law. CM will continue to follow and will assist as needed with dc plans/needs. Zoey Urena RN, [facility] DCPIA - Discharge Planning Initial Assessment Updated by [email or web address]: Zoey Urena on 09/21/19 2:10 pm * Is the patient Alert and Oriented? Yes * How many steps to enter\exit or inside your home? NONE * PCP DR. CASILLAS * Pharmacy [facility] [address] * Preadmission Environment Home with Family * ADLs Independent * Equipment None * List name and contact numbers for known caregivers / representatives who currently or will assist patient after discharge: LINDSAY VALENTINE - SON - [phone] * Verbal permission to speak to the caregivers and representatives has been obtained from the patient. Yes * Community resources currently utilized None * Additional services required to return to the preadmission environment? No * Can the patient safely return to the preadmission environment? Yes * Has this patient been hospitalized within the prior 30 days at any hospital? No Coverage Notice Reviewer: [email or web address] Lesley Urena Notice Issued Date-Time: 09/21/2019 13:13 Notice Type: IM Discharge Notice Notice Delivered To: Patient Relationship to Patient: [employer] Name: Delivery Method: - Bre[place] Days: Prior Verbal Notification: Recipient Understood Notice: Yes Recipient Signature: Yes Med Rec Note Co-signed by Attending: Coverage Notice Comment: imm signed Patient Name: BEBETO VALENTINE Page [phone] at 1314 All edits/amendments must be made on the electronic document DICTATION DATE: 09/22/19 131 SHAKER WASHER: CELE 09/22/19 1313 RPT#: [id number] DC DATE:09/21/19 STATUS: DIS IN [facility] [address] [place] [address] END OF REPORT
== END 2019-09-21 13:46 | disposition home or self-care (01) | DRG 390 ==
LOC: D.ER 07:11 → D.MS 09:17
PROVIDERS: Family Medicine; Surgery; ADMIT Family Medicine; ATTEND Family Medicine
DX: K56.609 Unspecified intestinal obstruction, unspecified as to partial versus complete obstruction (principal); E78.5 Hyperlipidemia, unspecified; E86.0 Dehydration